=== PATIENT | female | born 1950 | race Caucasian/White ===

== ENCOUNTER 2020-10-12 04:41 | Day surgery (SDC) | payer OTHER | END 2020-10-12 12:50 | disposition home or self-care (01) | LOC: JASU-ENDO 04:41 | PROC: 0DBL8ZX Excision of Transverse Colon, Via Natural or Artificial Opening Endoscopic, Diagnostic (ICD-10-PCS; 2020-10-12) | PROC: 0DBH8ZX Excision of Cecum, Via Natural or Artificial Opening Endoscopic, Diagnostic (ICD-10-PCS; principal; 2020-10-12 11:00) | CPT/HCPCS: 88305-TC ==

== ENCOUNTER 2020-11-02 04:31 | Day surgery (SDC) | payer OTHER ==
[2020-10-27 13:03] VITALS: BMI 30.1
[2020-11-02 12:05] VITALS: TEMP 98.2
[2020-11-02 13:36] VITALS: BP 123/51; PULSE 53
== END 2020-11-02 13:20 | disposition home or self-care (01) ==
LOC: JASU-ENDO 04:31
PROVIDERS: ATTEND Internal Medicine Gastroenterology
PROC: 0DB68ZX Excision of Stomach, Via Natural or Artificial Opening Endoscopic, Diagnostic (ICD-10-PCS; 2020-11-02)
PROC: 0DB98ZX Excision of Duodenum, Via Natural or Artificial Opening Endoscopic, Diagnostic (ICD-10-PCS; principal; 2020-11-02 12:00)
DX: K29.50 Unspecified chronic gastritis without bleeding (principal); K31.7 Polyp of stomach and duodenum; K29.80 Duodenitis without bleeding; Z80.0 Family history of malignant neoplasm of digestive organs; Z85.42 Personal history of malignant neoplasm of other parts of uterus; Z21 Asymptomatic human immunodeficiency virus [HIV] infection status
CPT/HCPCS: 88305-TC; 88342-TC

== ENCOUNTER → 2021-08-03 | Day surgery (SDC) | payer OTHER | END | disposition home or self-care (01) | LOC: JRADUS-SUR 09:12 | PROVIDERS: ATTEND Internal Medicine | PROC: 0H9T3ZX Drainage of Right Breast, Percutaneous Approach, Diagnostic (ICD-10-PCS; principal; 2021-08-03) | DX: C50.911 Malignant neoplasm of unspecified site of right female breast (principal) | CPT/HCPCS: 19083; 76942-TC; 77065-TC; 87899; 88305-TC; 88341-TC; 88342-TC; A4648 ==

== ENCOUNTER 2021-08-31 04:30 | Day surgery (SDC) | payer OTHER ==
[2021-08-30 13:56] VITALS: BMI 30.6
[2021-08-31 16:43] VITALS: BP 121/70; PULSE 67; TEMP 97.8
== END 2021-08-31 17:25 | disposition home or self-care (01) ==
LOC: JASU-SURG 04:30
PROVIDERS: ATTEND Surgery Surgical Oncology
PROC: 0HBT0ZZ Excision of Right Breast, Open Approach (ICD-10-PCS; principal; 2021-08-31)
PROC: 07B50ZX Excision of Right Axillary Lymphatic, Open Approach, Diagnostic (ICD-10-PCS; 2021-08-31)
DX: C50.911 Malignant neoplasm of unspecified site of right female breast (principal)
CPT/HCPCS: 19281; 76098-TC-FY; 78195-TC; 88307-TC; 88341-TC; 88342-TC; 94760; A9541; J0131